=== PATIENT | male | born 1965 | race Caucasian/White ===

== ENCOUNTER 2020-06-27 11:59 | Emergency (ER) | payer OTHER ==
[~2020-06-27] VITALS: Ht 193 cm; Wt 59.0 kg
[2020-06-27 12:18] VITALS: BP 148/99
[2020-06-27] MEDS ORDERED: HYDROcodone/acetaminophen 5mg/325mg tablet PO ONE (12:55)
[2020-06-27] MEDS ORDERED: HYDR-3965 PO (14:21)
== END 2020-06-27 14:43 | disposition home or self-care (01) ==
LOC: ER 12:00
DX: S43.101A Unspecified dislocation of right acromioclavicular joint, initial encounter (principal); S70.311A Abrasion, right thigh, initial encounter; F12.90 Cannabis use, unspecified, uncomplicated; M47.022 Vertebral artery compression syndromes, cervical region; Z72.89 Other problems related to lifestyle; Z79.899 Other long term (current) drug therapy; V00.848A Other accident with standing micro-mobility pedestrian conveyance, initial encounter; Y93.89 Activity, other specified; Y92.89 Other specified places as the place of occurrence of the external cause; Y99.8 Other external cause status
CPT/HCPCS: 70450; 70486; 72125; 73030; 99285